=== PATIENT | female | born 1990 | race Caucasian/White ===

== ENCOUNTER 2020-03-06 18:31 | Inpatient (IN) ==
[2020-03-06] MEDS ORDERED: IOPAMIDOL 100 ML BOTTLE IV ONE ×2 (18:32→23:20)
[2020-03-06] MEDS ORDERED: 0.9 % SODIUM CHLORIDE 1,000 ML IV ONE ×3 (18:36→20:29)
[2020-03-06] MEDS ORDERED: cefTRIAXone 1 GM in DEXTROSE 5% IN WATER 50 ML IV ONE (18:39)
[2020-03-06] MEDS ORDERED: ONDANSETRON 4 MG/2 ML VIAL IV ONE (18:39)
[2020-03-06] MEDS ORDERED: HYDROmorphone 0.5 MG/0.5 ML SYRINGE IV PRN (18:39)
[2020-03-06 19:43] LABS: Basophils # (Auto) 0.01 K/mcL (0.00-0.30); Basophils % (Auto) 0.2 % (0.0-2.0); Eosinophils # (Auto) 0 K/mcL (0.00-0.70); Eosinophils % (Auto) 0 % (0.0-7.0); Granulocytes % (Auto) 91.1 % (38.0-78.0); Lymphocytes # (Auto) 0.52 K/mcL (1.50-4.80); Lymphocytes % (Auto) 8.4 % (15.5-49.0); Mean Cell Volume 95.8 fL (80.0-100.0); Mean Corpuscular HGB Conc 33.3 g/dL (31.0-36.0); Mean Platelet Volume 10.7 fL (7.4-10.4); Monocytes # (Auto) 0.02 K/mcL (0.10-0.90); Monocytes % (Auto) 0.3 % (1.0-12.0); Platelet Count 214 K/mcL (140-440); RBC 4.07 M/mcL (3.59-5.38); Red Cell Distribution Width 12.1 % (11.5-14.5); WBC 6.2 K/mcL (4.50-11.00)
[2020-03-06 20:08] LABS: Chloride 105 mmol/L (96-108)
[2020-03-06 20:32] LABS: ALT/SGPT 108 U/l (0-40); AST/SGOT 93 U/l (0-37); Albumin 3.7 gm/dL (3.2-5.2); Albumin/Globulin Ratio 1.2 (1.0-2.3); Alkaline Phosphatase 93 U/L (39-117); Bilirubin,Total 0.7 mg/dL (0.0-1.0); Blood Urea Nitrogen 13 mg/dl (6-20); Calcium 8.9 mg/dl (8.6-10.4); Carbon Dioxide 19 mmol/L (22-30); Globulin 3.1 gm/dL (2.2-3.7); Glomerular Filtration Rate 87; Glucose 137 mg/dL (70-105)
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
[2020-03-06 21:47] LABS: Amphetamine Screen,Urine SUSPECT POSITIVE (NONDETECTED); Barbiturate Screen,Urine NONE DETECTED (NONDETECTED); Benzodiazepines Screen,Urine NONE DETECTED (NONDETECTED); Cannabinoid Screen,Urine NONE DETECTED (NONDETECTED); Cocaine Screen,Urine NONE DETECTED (NONDETECTED); Opiate Screen,Urine SUSPECT POSITIVE (NONDETECTED); Oxycodone, Urine Screen NONE DETECTED (NONDETECTED); Phencyclidine Screen,Urine NONE DETECTED (NONDETECTED)
[2020-03-06] MEDS ORDERED: POTASSIUM CHLORIDE 20 MEQ PACKET PO PRN (23:20)
[2020-03-06] MEDS ORDERED: MELATONIN 3 MG TABLET PO PRN (23:20)
[2020-03-06] MEDS ORDERED: ONDANSETRON 4 MG/2 ML VIAL IV PRN (23:20)
[2020-03-06] MEDS ORDERED: BISACODYL 10 MG SUPP.RECT PR PRN (23:20)
[2020-03-06] MEDS ORDERED: POLYETHYLENE GLYCOL 3350 17 GM PACKET PO PRN (23:20)
[2020-03-06] MEDS ORDERED: MAGNESIUM SULFATE 2 GM/50 ML BAG IV PRN (23:20)
[2020-03-06] MEDS ORDERED: ACETAMINOPHEN 325 MG TABLET PO PRN (23:20)
[2020-03-06] MEDS ORDERED: HYDROcodone/APAP 5/325MG TABLET PO PRN (23:20)
[2020-03-06] MEDS ORDERED: ONDANSETRON 4 MG ODT TABLET SL PRN (23:20)
[2020-03-06] MEDS ORDERED: ACETAMINOPHEN 650 MG/65 ML BOTTLE IV PRN (23:20)
[2020-03-06] MEDS ORDERED: cefTRIAXone 1 GM VIAL IV ONE (23:27)
[2020-03-06] MEDS ORDERED: LORazepam 2 MG/ML VIAL ONE (23:27)
[2020-03-06] MEDS ORDERED: HYDROcodone/APAP 5/325MG TABLET PO ONE (23:27)
[2020-03-06] MEDS: cefTRIAXone 2 GM in DEXTROSE 5% IN WATER 50 ML IV SCH (23:29)
[2020-03-06] MEDS: LORazepam 2 MG/ML VIAL IV PRN (23:31)
[2020-03-06] MEDS: 0.9 % SODIUM CHLORIDE 10 ML SYRINGE IV SCH (23:32)
[2020-03-06] MEDS: 0.9 % SODIUM CHLORIDE 1,000 ML IV SCH (23:32)
[2020-03-06] MEDS ORDERED: cefTRIAXone 1 GM VIAL ONE (23:37)
[2020-03-06] MEDS ORDERED: MELATONIN 3 MG TABLET PO ONE (23:55)
[2020-03-07] MEDS ORDERED: LORazepam 2 MG/ML VIAL ONE (05:22)
[2020-03-07] MEDS: LORazepam 2 MG/ML VIAL IV PRN (05:29)
[2020-03-07] MEDS: 0.9 % SODIUM CHLORIDE 10 ML SYRINGE IV SCH ×2 (05:30→14:15)
--- NOTE | 2020-03-07 05:52 | Cat Scan Report ---
CLINICAL INFORMATION: Abdominal pain and elevated LFTs COMPARISON: None. TECHNIQUE: Following enteric contrast, 80 cc of Isovue-370 were injected intravenously, and 60 seconds later, 0.625 mm helical slices were obtained from the mid heart through the subtrochanteric regions. Following reconstruction, 2.5 mm sagittal, coronal and axial reformatted images were processed and reviewed at bone, lung and soft tissue windows. Five minutes later, 0.625 mm helical slices were obtained from the mid heart through the kidneys and viewed at soft tissue windows.The exam was performed using radiation dose optimization techniques including, but not limited to, automated exposure control, adjustment of the mA and/or kV according to patient size and use of iterative reconstruction technique. FINDINGS: Lung bases show no abnormality - no effusion. The visualized heart is normal. Abdominal images show mild periportal edema within the liver. This is associated with primary hepatocellular processes such as inflammation. Gallbladder is unremarkable. The intrahepatic and common bile ducts are normal: CBD is 5 mm. The pancreas, both adrenal glands and spleen are normal in size, configuration and attenuation without focal lesion. There is a 3 mm nonobstructing stone within a mid calyx of the right kidney. The left kidney, there is a 16 mm simple cyst anterior cortex mid left kidney. Also in the left kidney, there is equivocal transitional epithelial thickening in the upper collecting system. There is no free air, or adenopathy Pelvic images show an anteflexed uterus which is normal in size - 8 x 3.3 cm.. There is a 17 mm simple cyst on the left ovary. 18 mm simple cyst seen in the right ovary. Small amount of free fluid noted in the true pelvis. Scattered sigmoid diverticula appreciated, but no evidence of diverticulitis. The remaining large bowel, appendix, small bowel and stomach are grossly normal. Bone windows show chronic right L5-S1 spondylolysis IMPRESSION: 1. Mild periportal edema within the liver which can indicate inflammation or other primary hepatocellular process. 2. Equivocal thickening of the transitional epithelium left upper collecting system. While this is likely insignificant, and can be a sign of early pyelonephritis. Please correlate with UA 3. 3 mm nonobstructing stone - mid calyx of the right kidney. 4. 16 mm simple cyst mid left kidney. 5. Chronic right L5-S1 spondylolysis. Interpreted and Authenticated by: Simon Caraballo 03/07/20
[2020-03-07 06:24] LABS: Hematocrit 34.9 % (34.1-44.9); Hemoglobin 11.9 g/dL (11.2-15.7); Mean Cell Volume 93.1 fL (80.0-100.0); Mean Corpuscular HGB Conc 34.1 g/dL (31.0-36.0); Mean Platelet Volume 10.9 fL (7.4-10.4); Platelet Count 240 K/mcL (140-440); RBC 3.75 M/mcL (3.59-5.38); Red Cell Distribution Width 12.4 % (11.5-14.5); WBC 15.1 K/mcL (4.50-11.00)
[2020-03-07 06:40] LABS: ALT/SGPT 100 U/l (0-40); AST/SGOT 91 U/l (0-37); Albumin 3.2 gm/dL (3.2-5.2); Albumin/Globulin Ratio 1.3 (1.0-2.3); Alkaline Phosphatase 76 U/L (39-117); Bilirubin,Direct < 0.2 mg/dL (0.0-0.3); Bilirubin,Total 0.4 mg/dL (0.0-1.0); Blood Urea Nitrogen 6 mg/dl (6-20); Carbon Dioxide 21 mmol/L (22-30); Chloride 107 mmol/L (96-108); Globulin 2.5 gm/dL (2.2-3.7); Glomerular Filtration Rate 118; Glucose 122 mg/dL (70-105); Lactate Dehydrogenase 191 U/L (94-250); Phosphorous 3.1 mg/dL (2.7-4.5); Triglycerides 87 mg/dl (<150); Uric Acid 3.3 mg/dL (2.5-8.0)
[2020-03-07 07:20] LABS: Band Neutrophils % 9 % (0-10); Lymphocytes % 6 % (15-49); Monocytes % (Manual) 3 % (1-12); Platelet Estimate NORMAL (NORMAL); RBC Morphology NORMAL (NORMAL); Segmented Neutrophils % 82 % (38-78)
[2020-03-07] MEDS ORDERED: DOCUSATE SODIUM 100 MG CAPSULE PO SCH (09:00)
[2020-03-07] MEDS: 0.9 % SODIUM CHLORIDE 1,000 ML IV SCH (09:54)
[2020-03-07] MEDS ORDERED: NICOTINE 14 MG PATCH TOPICAL SCH (10:00)
[2020-03-07 10:05] LABS: Appearance,Urine CLEAR; Bilirubin,Urine NEG (NEG); Color,Urine YELLOW; Culture Indicated,Urine NO; Glucose,Urine (UA) NEGATIVE (NEG); Ketones,Urine NEG (NEG); Leukocyte Esterase,Urine NEG /uL (NEG); Nitrate,Urine NEG (NEG); Protein,Urine NEG (NEG); Specific Gravity,Urine 1.016 (1.000-1.035); Urine Blood NEG mg/dL (<0.03); Urobilinogen,Urine NEG (NEG)
--- NOTE | 2020-03-07 12:20 | Discharge Summary ---
Discharge Provider Provider Patient information: Note initiated : 03/07/20 at 12:17 pm Service Date, if different from initiated Date: [] Patient: Zabrina Saenz a 29 y/o F admitted on 03/06/20 for fever, chills, recent dx uti. Discharge diagnosis * Severe sepsis-secondary to pyelonephritis. Clinically improved with antibiotic coverage. Continue Rocephin for additional 5 days. * Acute pyelonephritis as evident on CT-continue Rocephin for 5 days as outpatient * Methamphetamine use-counseled for cessation * Tobacco dependence cessation counseling Brief hospital course Ms. Saenz is a 29 year old F with history of recurrent UTI presents with 3-day onset of worsening weakness/fatigue/fever/flank pain. Patient presented to the ER the day prior and was diagnosed with UTI and was discharged on oral ciprofloxacin however symptoms fail to improve. she now presents with increasing malaise, dysuria and frequency. Initial work-up was consistent with tachycardia at 150/pyuria and elevated lactate. Urine drug screen positive for methamphetamine. Was started on antibi otics after cultures were drawn. 3 L of crystalloids were administered. CT abdomen pelvis was performed. Subsequently hospitalist service was consulted light of severe sepsis At the time of evaluation patient is anxious but alert and respond to commands. She denies multiple sexual partners. She denies history of STDs. Endorses to smoking. Works at [employer] 03/07-patient clinically improved. Pain resolved. White count however 15,000 but afebrile with resolution of flank pain. Patient feels at baseline and requesting discharge. Advised to continue additional 5 days IV Rocephin as outpatient. Date of admission: 03/06/20 23:10 Discharge date: 03/07/20 Primary care physician: Geovanny Mclaughlin MD Consults: 03/07/20 07:39 Consult to Physician [CONS] Routine Comment: Consulting Provider: Alexander Cole Reason For Exam: Physician to Consult Discharge Meds Discharge Medications Home Medications ondansetron HCl [Zofran] 8 mg PO Q8H PRN #10 tab 03/05/20 [Rx Confirmed 03/06/20 Last Taken Unknown] hydrocodone-acetaminophen [Chester] 1 tab PO Q4H PRN 03/06/20 [History Confirmed 03/06/20 Last Taken Unknown] ceftriaxone 2 gm IV Q24H #5 ea 03/07/20 [Rx Last Taken Unknown] COURSE Hospital Course Hospital course: . Discharge diagnosis: . Time Spent with Patient Time attestation: Total time spent providing and/or coordinating discharge services: EXAM Constitutional Vitals: Temp Pulse Resp BP Pulse Ox 98.1 F 96 H 26 H 124/99 99 03/07/20 12:00 03/07/20 08:01 03/07/20 12:00 03/07/20 12:00 03/07/20 12:00 Discharge Data Data Completed and Pending Labs on day of discharge: Labs from last 24 hours 03/07/20 03/07/20 03/07/20 09:20 05:20 05:20 WBC 15.1 H RBC 3.75 Hgb 11.9 Hct 34.9 MCV 93.1 MCH 31.7 MCHC 34.1 RDW 12.4 Plt Count 240 MPV 10.9 H Gran % Lymph % (Auto) [place] % (Auto) Eos % (Auto) Baso % (Auto) Gran # Lymph # (Auto) [place] # (Auto) Eos # (Auto) Baso # (Auto) Total Counted 100 Seg Neutrophils % 82 H Band Neutrophils % 9 Lymphocytes % 6 L Monocytes % (Manual) 3 Platelet Estimate Normal RBC Morphology Normal VBG Lactic Acid Sodium 138 Potassium 4.3 Chloride 107 Carbon Dioxide 21 L Anion Gap 10.0 BUN 6 Creatinine 0.7 GFR Calculation 118 Glucose 122 H Uric Acid 3.3 Calcium 8.0 L Phosphorus 3.1 Magnesium 2.0 Total Bilirubin 0.4 Direct Bilirubin < 0.2 GGT 37 H AST 91 H ALT 100 H Alkaline Phosphatase 76 Lactate Dehydrogenase 191 Total Protein 5.7 L Albumin 3.2 Globulin 2.5 Albumin/Globulin Ratio 1.3 Triglycerides 87 Urine Color Yellow Urine Appearance Clear Urine pH 6.0 Ur Specific [place] 1.016 Urine Protein Neg Urine Glucose (UA) Negative Urine Ketones Neg Urine Occult Blood Neg Urine Nitrate Neg Urine Bilirubin Neg Urine Urobilinogen Neg Ur Leukocyte Esterase Neg Ur Culture Indicated? No Urine Opiates Screen Ur Opiates Confirm Ur Oxycodone Screen Urine Methadone Screen Ur Methadone Confirm Ur Barbiturates Screen Ur Barbiturate Confirm Ur Phencyclidine Scrn Urine PCP Confirm Ur Amphetamines Screen U Amphetamines Confirm U Benzodiazepines Scrn U Benzodiazepine Confm Urine Cocaine Screen Urine Cocaine Confirm U Cannabinoids Confirm U Marijuana (THC) Screen 03/06/20 03/06/20 03/06/20 21:00 19:00 19:00 WBC RBC Hgb Hct MCV MCH MCHC RDW Plt Count MPV Gran % Lymph % (Auto) [place] % (Auto) Eos % (Auto) Baso % (Auto) Gran # Lymph # (Auto) [place] # (Auto) Eos # (Auto) Baso # (Auto) Total Counted Seg Neutrophils % Band Neutrophils % Lymphocytes % Monocytes % (Manual) Platelet Estimate RBC Morphology VBG Lactic Acid 2.6 H Sodium 139 Potassium 4.4 Chloride 105 Carbon Dioxide 19 L Anion Gap 15.0 BUN 13 Creatinine 0.9 GFR Calculation 87 Glucose 137 H Uric Acid Calcium 8.9 Phosphorus Magnesium Total Bilirubin 0.7 Direct Bilirubin GGT AST 93 H ALT 108 H Alkaline Phosphatase 93 Lactate Dehydrogenase Total Protein 6.8 Albumin 3.7 Globulin 3.1 Albumin/Globulin Ratio 1.2 Triglycerides Urine Color Urine Appearance Urine pH Ur Specific [place] Urine Protein Urine Glucose (UA) Urine Ketones Urine Occult Blood Urine Nitrate Urine Bilirubin Urine Urobilinogen Ur Leukocyte Esterase Ur Culture Indicated? Urine Opiates Screen Suspect positive A Ur Opiates Confirm Not Reportable Ur Oxycodone Screen None detected Urine Methadone Screen None detected Ur Methadone Confirm Not Reportable Ur Barbiturates Screen None detected Ur Barbiturate Confirm Not Reportable Ur Phencyclidine Scrn None detected Urine PCP Confirm Not Reportable Ur Amphetamines Screen Suspect positive A U Amphetamines Confirm Not Reportable U Benzodiazepines Scrn None detected U Benzodiazepine Confm Not Reportable Urine Cocaine Screen None detected Urine Cocaine Confirm Not Reportable U Cannabinoids Confirm Not Reportable U Marijuana (THC) Screen None detected 03/06/20 19:00 WBC 6.2 RBC 4.07 Hgb 13.0 Hct 39.0 MCV 95.8 MCH 31.9 MCHC 33.3 RDW 12.1 Plt Count 214 MPV 10.7 H Gran % 91.1 H Lymph % (Auto) 8.4 L [place] % (Auto) 0.3 L Eos % (Auto) 0 Baso % (Auto) 0.2 Gran # 5.62 Lymph # (Auto) 0.52 L [place] # (Auto) 0.02 L Eos # (Auto) 0 Baso # (Auto) 0.01 Total Counted Seg Neutrophils % Band Neutrophils % Lymphocytes % Monocytes % (Manual) Platelet Estimate RBC Morphology VBG Lactic Acid Sodium Potassium Chloride Carbon Dioxide Anion Gap BUN Creatinine GFR Calculation Glucose Uric Acid Calcium Phosphorus Magnesium Total Bilirubin Direct Bilirubin GGT AST ALT Alkaline Phosphatase Lactate Dehydrogenase Total Protein Albumin Globulin Albumin/Globulin Ratio Triglycerides Urine Color Urine Appearance Urine pH Ur Specific [place] Urine Protein Urine Glucose (UA) Urine Ketones Urine Occult Blood Urine Nitrate Urine Bilirubin Urine Urobilinogen Ur Leukocyte Esterase Ur Culture Indicated? Urine Opiates Screen Ur Opiates Confirm Ur Oxycodone Screen Urine Methadone Screen Ur Methadone Confirm Ur Barbiturates Screen Ur Barbiturate Confirm Ur Phencyclidine Scrn Urine PCP Confirm Ur Amphetamines Screen U Amphetamines Confirm U Benzodiazepines Scrn U Benzodiazepine Confm Urine Cocaine Screen Urine Cocaine Confirm U Cannabinoids Confirm U Marijuana (THC) Screen Discharge Plan Patient/Caregiver Discharge Instructions Activity: increase activity as tolerated Diet: Regular Diet Activity Restrictions/Additional Instructions: Continue IV Rocephin for additional 5 days at infusion [facility] Return to ER if worsening flank pain, fever, chills Refrain from amphetamine use Prescriptions: New ceftriaxone 2 gram Recon Soln 2 gm IV Q24H Qty: 5 RF: 0 Continued ondansetron HCl [Zofran] 8 mg tablet 8 mg PO Q8H PRN (Reason: nausea and vomiting) Qty: 10 RF: 0 hydrocodone-acetaminophen [Chester] 5-325 mg Tablet 1 tab PO Q4H PRN (Reason: Pain) RF: 0 Discontinued ciprofloxacin HCl 500 mg tablet 500 mg PO BID Qty: 20 RF: 0 Follow Up Plan Follow up with: Geovanny Mclaughlin MD [Primary Care Provider] - Patient Disposition: Home, Self-Care Prognosis: Fair Rehab Potential: Fair I certify that the patient requires SNF services: No Overall status at discharge: patient is progressing back to baseline Discharge Orders: Discharge Order (Routine); Ordered 03/07/20 Ordered By: Alexander Cole
[2020-03-07] MEDS: cefTRIAXone 2 GM in DEXTROSE 5% IN WATER 50 ML IV SCH (14:14)
[2020-03-07] MEDS ORDERED: SENNOSIDES/DOCUSATE SODIUM 1 TAB TABLET PO SCH (21:00)
[2020-03-14 18:08] LABS: Opiate Confirmation POSITIVE (N)
== END 2020-03-07 15:00 | disposition home or self-care (01) | DRG 872 ==
LOC: ED 18:31 → ICU 23:10
PROVIDERS: ADMIT Internal Medicine; ATTEND Internal Medicine